=== PATIENT | male | born 1980 | race Caucasian/White ===

== ENCOUNTER 2020-11-26 19:21 | Emergency (ER) | payer BC ==
[~2020-11-26] VITALS: Ht 185.4 cm; Wt 63.0 kg
[2020-11-26 20:00] VITALS: BP 139/105
--- NOTE | 2020-11-26 20:05 | NUR ---
PT SEEN IN TRIAGE BY ANUEL CEDENO
[2020-11-26] MEDS ORDERED: KETOROLAC 30 MG/ML VIAL IM ONE (20:10)
--- NOTE | 2020-11-26 20:11 | NUR ---
PT TAKEN TO CHAIR
[2020-11-26] MEDS ORDERED: HYDROcodone/APAP 5/325 MG 1 TAB TAB PO ONE (21:05)
--- NOTE | 2020-11-26 21:15 | NUR ---
taken to rad via w/c
[2020-11-26] MEDS ORDERED: IBUP-2213 PO (22:14)
[2020-11-26] MEDS ORDERED: ACET-9525 PO (22:14)
[2020-11-26 22:20] VITALS: BP 128/91
--- NOTE | 2020-11-26 22:20 | NUR ---
Patient discharged with v/s stable. Written and verbal after care instructions given and explained. Patient alert, oriented and verbalized understanding of instructions. Ambulatory with steady gait. All questions addressed prior to discharge. ID band removed. Patient advised to follow up with PMD. Rx of NORCO AND MOTRIN given. Patient educated on indication of medication including possible reaction and side effects. Opportunity to ask questions provided and answered.
== END 2020-11-26 22:20 | disposition home or self-care (01) ==
LOC: MED 19:21
DX: R10.32 Left lower quadrant pain (principal); L53.9 Erythematous condition, unspecified; Z79.1 Long term (current) use of non-steroidal anti-inflammatories (NSAID); Z79.891 Long term (current) use of opiate analgesic
CPT/HCPCS: 73501; 73620; 81002; 99284